=== PATIENT | male | born 1950 | race Caucasian/White ===

== ENCOUNTER 2017-04-19 13:01 | Emergency (ER) | payer MEDICARE ==
--- NOTE | 2017-04-19 13:15 | EDM.PDOC ---
ED HPI GENERAL MEDICAL PROBLEM - General Chief Complaint: Respiratory Problem Stated Complaint: SENT BY [facility] Time Seen by Provider: 04/19/17 13:10 Source of Information: Reports: Patient, Provider History Limitations: Reports: No Limitations - History of Present Illness INITIAL COMMENTS - FREE TEXT/NARRATIVE: Patient is a 67-year-old male with a history type 2 diabetes who presents to the ED after being diagnosed with pulmonary embolus by his PCP earlier today. He was sent here for further workup and anticoagulation. Patient has no complaints at this time. This includes chest pain and shortness of breath. He denies history of GI bleeds or dark tarry stools. Of note he's had cold like symptoms since and on Adrienne he coughed up 2 small blood clots. This prompted evaluation by PCP thus CT of the chest was obtained. Patient denies any swelling or tenderness to his lower extremities. He has no history of PE or DVT or cancer. Patient does travel [place] multiple times during the year. Last occurrence was approximately 6 weeks ago. - Related Data Allergies Allergy/AdvReac Type Severity Reaction Status Date / Time sulfacetamide Allergy Cannot Verified 04/19/17 10:36 Remember Home Meds: Home Meds Gemfibrozil 600 mg PO BID 04/19/17 [History] Lisinopril 2.5 mg PO DAILY 04/19/17 [History] Metoprolol Tartrate 50 mg PO BID 04/19/17 [History] Omeprazole 20 mg PO BID 04/19/17 [History] Rivaroxaban [Xarelto] 15 mg PO BID #42 tablet 04/19/17 [Rx] amLODIPine [Norvasc] 10 mg PO DAILY 04/19/17 [History] atorvaSTATin [Lipitor] 40 mg PO DAILY 04/19/17 [History] metFORMIN [Glucophage XR] 1,000 mg PO BID 04/19/17 [History] ED ROS GENERAL - Review of Systems Review Of Systems: ROS reveals no pertinent complaints other than HPI. ED EXAM, GENERAL - Physical Exam Exam: See Below Exam Limited By: No Limitations General Appearance: Alert, WD/WN, No Apparent Distress Ears: Hearing Grossly Normal Nose: Normal Inspection Throat/Mouth: Normal Voice, No Airway Compromise Neck: Normal Inspection, Supple Respiratory/Chest: No Respiratory Distress, Lungs Clear, Normal Breath Sounds, No Accessory Muscle Use, Chest Non-Tender Cardiovascular: Normal Peripheral Pulses, No Murmur Peripheral Pulses: 2+: Posterior Tibial (L), Posterior Tibial (R), 4+: Radial (L ), Radial (R) GI/Abdominal: Normal Bowel Sounds, Soft, Non-Tender, No Organomegaly, No Distention Extremities: Normal Inspection, Normal Range of Motion, Non-Tender, No Pedal Edema, Normal Capillary Refill Neurological: Alert, Oriented, CN II-XII Intact, Normal Cognition, No Motor/ Sensory Deficits Psychiatric: Normal Affect, Normal Mood Skin Exam: Warm, Dry, Normal Color, No Rash Course - Vital Signs Last Recorded V/S: Last Vital Signs Temp 96.8 F 04/19/17 13:12 Pulse 77 04/19/17 13:12 Resp 20 04/19/17 13:12 BP 146/80 H 04/19/17 13:12 Pulse Ox 98 04/19/17 13:12 - Orders/Labs/Meds Orders: Active Orders 24 hr Category Date Time Status ANTITHROMBIN III ACTIVITY [REF] Stat Lab 04/19/17 14:22 Received FACTOR 5 LEIDEN MUTATION [REF] Stat Lab 04/19/17 14:22 Received PROTEIN C AND S ACTIVITY [REF] Stat Lab 04/19/17 14:22 Received PROTHROMBIN [id number] MUTATION [REF] Stat Lab 04/19/17 14:22 Received Labs: Laboratory Tests 04/19/17 04/19/17 Range/Units 13:50 13:50 WBC 8.99 (4.23-9.07) K/mm3 RBC 4.79 (4.63-6.08) M/mm3 Hgb 13.4 L (13.7-17.5) gm/L Hct 40.0 L (40.1-51.0) % MCV 83.5 (79.0-92.2) fl MCH 28.0 (25.7-32.2) pg MCHC 33.5 (32.2-35.5) g/dl RDW Std Deviation 39.1 (35.1-43.9) fL Plt Count 282 (163-337) K/mm3 MPV 10.2 (9.4-12.3) fl Neut % (Auto) 58.8 (34.0-67.9) % Lymph % (Auto) 23.0 (21.8-53.1) % Sandoval % (Auto) 7.1 (5.3-12.2) % Eos % (Auto) 10.0 H (0.8-7.0) Baso % (Auto) 1.0 (0.1-1.2) % Neut # (Auto) 5.28 (1.78-5.38) K/mm3 Lymph # (Auto) 2.07 (1.32-3.57) K/mm3 Sandoval # (Auto) 0.64 (0.30-0.82) K/mm3 Eos # (Auto) 0.90 H (0.04-0.54) K/mm3 Baso # (Auto) 0.09 H (0.01-0.08) K/mm3 Sodium 141 (136-145) mEq/L Potassium 3.9 (3.5-5.1) mEq/L Chloride 106 (98-107) mEq/L Carbon Dioxide 25 (21-32) mEq/L Anion Gap 13.9 (5-15) BUN 16 (7-18) mg/dL Creatinine 1.1 (0.7-1.3) mg/dL Est Cr Clr Drug Dosing 69.57 mL/min Estimated GFR (MDRD) > 60 (>60) mL/min BUN/Creatinine Ratio 14.5 (14-18) Glucose 120 H (80-115) mg/dL Calcium 9.1 (8.5-10.1) mg/dL Total Bilirubin 0.7 (0.2-1.0) mg/dL AST 23 (15-37) U/L ALT 33 (16-63) U/L Alkaline Phosphatase 90 (46-116) U/L Total Protein 8.2 (6.4-8.2) g/dl Albumin 3.8 (3.4-5.0) g/dl Globulin 4.4 gm/dL Albumin/Globulin Ratio 0.9 L (1-2) Meds: Medications Discontinued Medications Generic Name Dose Route Start Last Admin Trade Name Freq PRN Reason Stop Dose Admin Rivaroxaban 20 mg 04/19/17 17:32 Xarelto PO 04/19/17 17:33 ONETIME ONE Rivaroxaban 15 mg 04/19/17 17:36 04/19/17 17:58 Xarelto PO 04/19/17 17:37 15 mg ONETIME ONE Administration - Re-Assessments/Exams Free Text/Narrative Re-Assessment/Exam: Reviewed recent CT of the chest. Technique: Multiple axial sections were obtained from above the lung apices inferiorly through the lung bases. Intravenous contrast was utilized. Comparison: No prior chest CT. Findings: Filling defects are identified within the segmental and subsegmental pulmonary arteries of both lower lungs compatible with pulmonary emboli. Moderately large hiatal hernia is seen. Trachea is enlarged most likely incidental. Mediastinum and hilar regions show no adenopathy or mass. No axillary adenopathy is seen. Minimal coronary artery calcification is noted. Fatty infiltration seen within the liver. Slight subpleural density seen within the right middle lobe most likely due to atelectasis or scarring. Mild atelectasis or scarring seen within the right lung base. Small subpleural nodule noted within the right upper lung measuring 4.7 mm. Lungs otherwise are clear. Bone window settings were reviewed which appear within normal limits for the patient's age. Impression: 1. Multiple pulmonary emboli seen within both lower lung pulmonary arteries. 2. Moderately large hiatal hernia. 3. Enlarged trachea which is likely incidental. 4. Small subpleural nodule within the upper right lung. If the patient is a smoker, recommend repeat noncontrast chest CT in one year. If patient is not a smoker, this can be ignored. 5. Areas of parenchymal density as noted above likely due to scarring and/or areas of atelectasis. 6. Other incidental findings as noted above. Home medications reviewed. Recent CT of the chest revealed pulmonary embolus. Patient has no symptoms at this time. He does travel long distances multiple times during the year. As of recent coughed up two blood clot on 2 separate occasions. He has no history of cancer, GI bleed, recent surgery, previous stroke, cancer, renal or liver failure, or history of alcohol abuse and frequent falls. Patient is moderate risk for anticoagulating. This is large part due to his diabetes. At this point we'll obtain ultrasound of the lower extremities to rule out DVT. In addition ordered basic labs including CBC, chem 14, antithrombin III activity , factor V Leiden mutation, protein [employer] activity, and prothrombin 20,210. 04/19/17 16:28 Labs reviewed: CBC and chemistry panel were essentially normal. Hemoglobin is only mildly low at 13.4. Ultrasound of the lower extremities impression: Findings as noted above felt to be incidental. No evidence of deep venous thrombosis is seen within either the right or left lower extremities. Shared results of ultrasound and labs with patient. Discussed pros and cons to taking Coumadin, xarelto, and or Eliquis. All questions were answered in great detail. Risks, benefits, and alternative treatments were discussed with the patient as well. He has opted to go ahead and start Xarelto for anticoagulant therapy. He will need to see his PCP for results of the above tests that are pending and for further workup to why he's experiencing PEs. Patient had no additional questions or concerns was in agreement and plan. No contraindications noted for anticoagulant therapy. No interactions with current medications with taking xarelto. Ordered xarelto 15 mg po. Departure - Departure Time of Disposition: 17:35 Disposition: Home, Self-Care 01 Condition: Good Clinical Impression: Lung nodule Pulmonary emboli Qualifiers: Pulmonary embolism type: other Chronicity: acute Acute cor pulmonale presence: without acute cor pulmonale Qualified Code(s): I26.99 - Other pulmonary embolism without acute cor pulmonale - Discharge Information Prescriptions: Rivaroxaban [Xarelto] 15 mg PO BID #42 tablet Instructions: Pulmonary Embolism Referrals: Earnestine Ramirez NP [Primary Care Provider] - Forms: ED Department Discharge Additional Instructions: Will have you take xarelto 15mgs twice a day for 21 days. Thereafter you will take 20 mg 1 time a day. Please follow up with primary care provider for results of pending labs. Labs ordered were to help determine if there any deficiencies to why you're experiencing PEs. Further workup is required to ascertain why you developed PEs to your lungs. Please return to the ED if you develop increasing shortness of breath, chest pain, presyncopal /syncopal episode, dizziness, GI bleed or any additional new or worsening symptoms. Please see below for details of CT study. CT of the chest obtained earlier to day revealed: Multiple pulmonary emboli seen within both lower lung pulmonary arteries. Small subpleural nodule within the upper right lung. With history of smoking suggest repeat contrast chest CT study in one year to evaluate for stability. - My Orders Last 24 Hours: My Active Orders 04/19/17 14:22 ANTITHROMBIN III ACTIVITY [REF] Stat FACTOR 5 LEIDEN MUTATION [REF] Stat PROTEIN C AND S ACTIVITY [REF] Stat PROTHROMBIN [id number] MUTATION [REF] Stat - Assessment/Plan Last 24 Hours: My Active Orders 04/19/17 14:22 ANTITHROMBIN III ACTIVITY [REF] Stat FACTOR 5 LEIDEN MUTATION [REF] Stat PROTEIN C AND S ACTIVITY [REF] Stat PROTHROMBIN [id number] MUTATION [REF] Stat
--- NOTE | 2017-04-19 16:20 | US ---
Bilateral lower extremity deep venous ultrasound: Duplex and color flow imaging was obtained of the right and left common femoral, superficial femoral, popliteal, posterior tibial and peroneal veins. Comparison: No prior venous imaging. Findings: Compression of the right peroneal vein not optimally seen. Phasic flow not identified within the peroneal vein on the left side. Other vein show normal compression, phasic flow and augmentation. Impression: 1. Findings as noted above felt to be incidental. No evidence of deep venous thrombosis is seen within either the right or left lower extremities. Diagnostic code #2
[2017-04-19] MEDS ORDERED: Rivaroxaban 10 MG Tab PO ONE ×2 (17:32→17:36)
== END 2017-04-19 18:02 | disposition home or self-care (01) ==
LOC: JD.ED 13:01
DX: I26.99 Other pulmonary embolism without acute cor pulmonale (principal); E11.9 Type 2 diabetes mellitus without complications; K44.9 Diaphragmatic hernia without obstruction or gangrene; Z79.84 Long term (current) use of oral hypoglycemic drugs; Z88.2 Allergy status to sulfonamides; Z79.899 Other long term (current) drug therapy; R43.2 Parageusia; R43.0 Anosmia; J32.9 Chronic sinusitis, unspecified; R05 Cough; J32.4 Chronic pansinusitis; R91.1 Solitary pulmonary nodule
CPT/HCPCS: 36415; 70460; 70487; 71260; 80053; 81240; 81241; 85025; 85300; 85303; 85306; 93970; 99285; A9270; J7050; Q9967; 99284

== ENCOUNTER 2017-10-21 08:01 | Emergency (ER) | payer MEDICARE ==
--- NOTE | 2017-10-21 08:43 | EDM.PDOC ---
ED HPI GENERAL MEDICAL PROBLEM - General Chief Complaint: General Stated Complaint: DENTAL COMPLAINT Time Seen by Provider: 10/21/17 08:33 - History of Present Illness INITIAL COMMENTS - FREE TEXT/NARRATIVE: 67-year-old male presents emergency room with dental pain. This pain is been going on Overnight, started last night. No fevers or chills no facial swelling. Patient has not had any chest pain chest pressure breathing difficulties or shortness of breath no other significant complaints. Patient has a broken tooth there this broke about a year ago he got busy and never had a fixed and now is starting to act up again. Tooth/Teeth Pain Score (Numeric/FACES): 6 - Related Data Allergies Allergy/AdvReac Type Severity Reaction Status Date / Time sulfacetamide Allergy Cannot Verified 10/21/17 08:12 Remember Home Meds: Home Meds Metoprolol Tartrate 50 mg PO BID 04/19/17 [History] Omeprazole 20 mg PO BID 04/19/17 [History] amLODIPine [Norvasc] 10 mg PO DAILY 04/19/17 [History] atorvaSTATin [Lipitor] 40 mg PO DAILY 04/19/17 [History] metFORMIN [Glucophage XR] 1,000 mg PO BID 04/19/17 [History] Amoxicillin 500 mg PO Q8H #30 capsule 10/21/17 [Rx] Past Medical History Cardiovascular History: Reports: High Cholesterol, Hypertension, Other (See Below) Other Cardiovascular History: 2 episdoes of SVT Respiratory History: Reports: PE Endocrine/Metabolic History: Reports: Diabetes, Type II Social & Family History - Tobacco Use Smoking Status *Q: Never Smoker - Caffeine Use Caffeine Use: Reports: Coffee ED ROS GENERAL - Review of Systems Review Of Systems: See Below Constitutional: Reports: No Symptoms. Denies: Fever, Chills HEENT: Reports: Dental Pain. Denies: Ear Discharge, Ear Pain, Eye Discharge, Eye Pain, Rhinitis, Sinus Problem Respiratory: Reports: No Symptoms Cardiovascular: Reports: No Symptoms GI/Abdominal: Reports: No Symptoms ED EXAM, GENERAL - Physical Exam Exam: See Below Exam Limited By: No Limitations General Appearance: Alert, No Apparent Distress Eye Exam: Bilateral Eye: Normal Inspection Ears: Normal External Exam, Normal Canal, Hearing Grossly Normal, Normal TMs Nose: Normal Inspection Throat/Mouth: Normal Lips, Normal Oropharynx, Normal Voice, No Airway Compromise , Other (Tooth #28 is decayed down to the gumline he has some erythema of the gum and surrounding area and tenderness in this area). No: Normal Teeth, Normal Gums Head: Atraumatic, Normocephalic Neck: Normal Inspection, Supple, Non-Tender, Full Range of Motion. No: Lymphadenopathy (L), Lymphadenopathy (R) Respiratory/Chest: No Respiratory Distress, Lungs Clear, Normal Breath Sounds Cardiovascular: Regular Rate, Rhythm, No Edema, No Murmur Course - Vital Signs Last Recorded V/S: Last Vital Signs Temp 36.7 C 10/21/17 08:14 Pulse 77 10/21/17 08:14 Resp BP 147/85 H 10/21/17 08:14 Pulse Ox 98 10/21/17 08:14 - Re-Assessments/Exams Free Text/Narrative Re-Assessment/Exam: 10/21/17 08:46 Patient is advised to follow-up with a dentist as soon as he can. Patient wants to continue to use ibuprofen only for his discomfort. Departure - Departure Time of Disposition: 08:46 Disposition: Home, Self-Care 01 Clinical Impression: Dental caries, Pain, dental - Discharge Information Prescriptions: Amoxicillin 500 mg PO Q8H #30 capsule Referrals: Earnestine Ramirez NP [Primary Care Provider] - Additional Instructions: Return to the emergency room with any questions problems worsening symptoms. Take the antibiotics as directed. Follow-up with your dentist as soon as practical
== END 2017-10-21 08:59 | disposition home or self-care (01) ==
LOC: JD.ED 08:01
DX: K02.9 Dental caries, unspecified (principal); I10 Essential (primary) hypertension; E11.9 Type 2 diabetes mellitus without complications; Z88.2 Allergy status to sulfonamides; Z79.899 Other long term (current) drug therapy
CPT/HCPCS: 99282; 99283